=== PATIENT | male | born 1995 | race Two or more races ===

== ENCOUNTER 2020-09-20 14:01 | Emergency (ER) | payer OTHER ==
[~2020-09-20] VITALS: Ht 177.8 cm; Wt 90.7 kg
[2020-09-20 15:58] VITALS: BP 140/92
== END 2020-09-20 17:27 | disposition home or self-care (01) ==
LOC: ER 14:01
DX: S83.92XA Sprain of unspecified site of left knee, initial encounter (principal); M25.462 Effusion, left knee; W01.0XXA Fall on same level from slipping, tripping and stumbling without subsequent striking against object, initial encounter; Y93.89 Activity, other specified; Y92.89 Other specified places as the place of occurrence of the external cause; Y99.8 Other external cause status
CPT/HCPCS: 73562